=== PATIENT | male | born 1970 | race Caucasian/White ===

== ENCOUNTER 2020-09-18 13:00 | Inpatient (IN) | payer OTHER ==
[~2020-09-18] VITALS: Ht 180.3 cm; Wt 81.7 kg
[~2020-09-18 13:00] MED LIST: ANTISEPTIC SKI237 ML TOP; RIFA300 PO; SULFATRIM 800-120 ML PO
[2020-09-18 13:22] LABS: BASOPHILS ABSOLUTE AUTO 0.06 K/mm3 (0.00-0.23); BASOPHILS PERCENT AUTO 1 % (0-2); EOSINOPHILS ABSOLUTE AUTO 0.21 K/mm3 (0.00-0.68); EOSINOPHILS PERCENT AUTO 2 % (0-6); Hematocrit 45.1 % (37.0-53.0); Hemoglobin 14.3 g/dL (13.5-17.5); IMMATURE GRAN ABSOLUTE AUTO 0.03 K/mm3 (0.00-0.10); IMMATURE GRAN PERCENT AUTO 0 % (0-1); LYMPHOCYTES PERCENT AUTO 28 % (21-46); MONOCYTES ABSOLUTE AUTO 0.88 K/mm3 (0.16-1.47); MONOCYTES PERCENT AUTO 7 % (4-13); Mean Corpuscular HGB 27.8 pg (26.0-34.0); Mean Corpuscular HGB Conc 31.7 g/dL (31.5-36.5); Mean Corpuscular Volume 88 fL (80-100); Mean Platelet Volume 8.5 fL (9.1-12.4); NEUTROPHILS ABSOLUTE AUTO 7.93 K/mm3 (1.96-9.15); NEUTROPHILS PERCENT AUTO 62 % (41-73); Platelet Count 453 K/mm3 (150-400); RDW Coefficient Variation 12.7 % (11.7-14.2); RDW Standard Deviation 40.7 fL (35.1-46.3); Red Blood Cell Count 5.15 M/mm3 (4.30-5.90); White Blood Cell Count 12.71 K/mm3 (4.00-11.30)
[2020-09-18 14:09] LABS: Alanine Aminotransfer (ALT/SGP 71 U/L (12-78); Albumin, Blood 3.2 g/dL (3.4-5.0); Albumin/Globulin Ratio 0.8 (0.8-1.8); Alk Phos 72 U/L (50-136); Aspartate Aminotrans (AST/SGOT 34 U/L (12-37); Bilirubin, Total 1.1 mg/dL (0.1-1.0); Blood Urea Nitrogen 17 mg/dL (8-24); Bun/Creatinine Ratio 14.8 (12.0-20.0); CO2, Blood 32 mmol/L (21-32); Calcium, Blood 8.9 mg/dL (8.5-10.1); Creatinine, Blood 1.15 mg/dL (0.60-1.20); Globulin, Blood 3.9 g/dL (2.2-4.0); Glomerular Filtration Rate >60 (60-); Glucose, Blood 145 mg/dL (70-99); Total Protein, Blood 7.1 g/dL (6.4-8.2); Troponin I <0.015 ng/mL (0.000-0.040)
[2020-09-18 14:17] LABS: Anion Gap 3 mmol/L (6-16); Chloride, Blood 107 mmol/L (98-108); Potassium, Blood 4.3 mmol/L (3.5-5.5); Sodium, Blood 142 mmol/L (136-145)
[2020-09-18 15:03] LABS: International Normalized Ratio 0.97; Prothrombin Time Results 10.5 Sec (9.7-11.5)
[2020-09-18 15:18] LABS: SARS-Cov-2 (COVID-19) PCR, MMC NEGATIVE (NEGATIVE)
[2020-09-18 16:42] LABS: Hematocrit 32.3 % (37.0-53.0); Hemoglobin 10.3 g/dL (13.5-17.5)
[2020-09-18 19:14] LABS: Hemoglobin 12.3 g/dL (13.5-17.5); Mean Corpuscular HGB 28.5 pg (26.0-34.0); Mean Corpuscular HGB Conc 32.4 g/dL (31.5-36.5); Mean Corpuscular Volume 88 fL (80-100); Mean Platelet Volume 8.7 fL (9.1-12.4); Platelet Count 343 K/mm3 (150-400); Red Blood Cell Count 4.32 M/mm3 (4.30-5.90); White Blood Cell Count 22.06 K/mm3 (4.00-11.30)
[2020-09-19 04:36] LABS: Hematocrit 33.5 % (37.0-53.0); Hemoglobin 10.8 g/dL (13.5-17.5); Mean Corpuscular HGB 28.2 pg (26.0-34.0); Mean Corpuscular HGB Conc 32.2 g/dL (31.5-36.5); Mean Corpuscular Volume 88 fL (80-100); Mean Platelet Volume 8.7 fL (9.1-12.4); Platelet Count 321 K/mm3 (150-400); RDW Coefficient Variation 13.2 % (11.7-14.2); Red Blood Cell Count 3.83 M/mm3 (4.30-5.90); White Blood Cell Count 14.99 K/mm3 (4.00-11.30)
--- NOTE | 2020-09-19 05:01 | NUR ---
SHIFT SUMMARY PATIENT POST OP EX LAP TURNED OPEN SMALL BOWEL RESECTION FOR HEMOPERITONEUM. RESTED IN BED THROUGHOUT SHIFT. MEDICATED FOR PAIN PER EMAR. TOLERATING ICE CHIPS AND SIPS OF CLEARS. MIDLINE TIFFANIE INTACT AND WNL. LUIS PATENT AND DRAINING. POST OP VSS. NSR 80S ON TELE. ROUTINE FLUIDS RUNNING.
[2020-09-19 16:21] LABS: Hematocrit 30.9 % (37.0-53.0)
--- NOTE | 2020-09-19 18:44 | NUR ---
SHIFT SUMMARY PT HAS BEEN DROWSY & SLEEPING T/O DAY. TOLERATING CLEAR LQS WELL. REFUSES TO GET OUT OF BED. SAYS HE DOESN'T FEEL READY BUT MAKES STATEMENTS THAT HE WILL BE WILLING TO BE ACTIVE TOMORROW.
[2020-09-20 04:38] LABS: BASOPHILS ABSOLUTE AUTO 0.03 K/mm3 (0.00-0.23); BASOPHILS PERCENT AUTO 0 % (0-2); EOSINOPHILS PERCENT AUTO 1 % (0-6); Hematocrit 30.9 % (37.0-53.0); IMMATURE GRAN ABSOLUTE AUTO 0.03 K/mm3 (0.00-0.10); IMMATURE GRAN PERCENT AUTO 0 % (0-1); LYMPHOCYTES ABSOLUTE AUTO 2.75 K/mm3 (0.84-5.20); LYMPHOCYTES PERCENT AUTO 23 % (21-46); MONOCYTES ABSOLUTE AUTO 1.16 K/mm3 (0.16-1.47); MONOCYTES PERCENT AUTO 10 % (4-13); Mean Corpuscular HGB 28.5 pg (26.0-34.0); Mean Corpuscular HGB Conc 32.4 g/dL (31.5-36.5); Mean Corpuscular Volume 88 fL (80-100); NEUTROPHILS ABSOLUTE AUTO 7.76 K/mm3 (1.96-9.15); NEUTROPHILS PERCENT AUTO 66 % (41-73); Platelet Count 310 K/mm3 (150-400); RDW Standard Deviation 41.9 fL (35.1-46.3); Red Blood Cell Count 3.51 M/mm3 (4.30-5.90); White Blood Cell Count 11.83 K/mm3 (4.00-11.30)
[2020-09-20 04:55] LABS: Anion Gap 2 mmol/L (6-16); Blood Urea Nitrogen 14 mg/dL (8-24); Bun/Creatinine Ratio 20.1 (12.0-20.0); CO2, Blood 31 mmol/L (21-32); Calcium, Blood 7.8 mg/dL (8.5-10.1); Chloride, Blood 105 mmol/L (98-108); Glomerular Filtration Rate >60 (60-); Glucose, Blood 101 mg/dL (70-99); Potassium, Blood 3.9 mmol/L (3.5-5.5); Sodium, Blood 138 mmol/L (136-145)
--- NOTE | 2020-09-20 05:50 | NUR ---
POD 2 S/P EX LAP+RESECTION. PT VSS, SEAL AND SX INTACT TO TIFFANIE DRESSING, NO NEW DRNG NOTED. PT GERI CL PO, ABD SOFT, BT HYPO, PT REP ABD CRAMPING THIS AM, REP +FLATUS. PT VOIDING ARIADNE URINE. PLAN TO MOBILIZE TODAY.
[2020-09-20] MEDS ORDERED: OXYC5 PO (14:13)
[2020-09-20] MEDS ORDERED: Acetaminophen650 M1 PO (14:14)
--- NOTE | 2020-09-20 14:25 | NUR ---
DISCHARGE PT IS A&O X4. PT IS TOLERATING ORAL INTAKE, PASSING GAS, AND BOWEL TONES ARE PRESENT. PT MEDICATED PER EMAR FOR PAIN PRIOR TO DISCHARGE. PT FRIEND AT BEDSIDE DURING DISCHARGE DIRECTION. PT PROVIDED W/ BOTH WRITTEN AND VERBAL DISCHARGE DIRECTION. OXY HARD SCRIPT PROVIDED WITH DISCHARGE INFO. PT VERBALIZED UNDERSTANDING. PT DENIED NEED FOR WC ESCORT WHEN OFFERED. PT LEFT FACILITY BY FOOT.
--- NOTE | 2020-09-21 08:49 | NUR ---
09/21/20 0849 Gita Cherry VERIFICATIONS: EDIT CHART.
== END 2020-09-20 14:25 | disposition home or self-care (01) | DRG 329 ==
LOC: ER 13:00 → SURS 13:01 → ER 13:01 → SURS 14:45
PROVIDERS: Emergency Medicine; ADMIT Surgery
PROC: 0DJD4ZZ Inspection of Lower Intestinal Tract, Percutaneous Endoscopic Approach (ICD-10-PCS; 2020-09-18)
PROC: 0DB80ZZ Excision of Small Intestine, Open Approach (ICD-10-PCS; principal; 2020-09-18 14:30)
PROC: 30233N1 Transfusion of Nonautologous Red Blood Cells into Peripheral Vein, Percutaneous Approach (ICD-10-PCS; 2020-09-18 14:30)
DX: K66.1 Hemoperitoneum (principal); R57.8 Other shock; F15.90 Other stimulant use, unspecified, uncomplicated; Z98.890 Other specified postprocedural states; K40.90 Unilateral inguinal hernia, without obstruction or gangrene, not specified as recurrent
CPT/HCPCS: 36415; 36430; 74178; 80048; 80053; 83690; 84484; 85014; 85018; 85025; 85027; 85610; 86850; 86900; 86901; 86923; 88307; 93005; 93010; 94762; 96361; 96374; 99285-25; A9270; J0330; J0690; J1100; J1170; J1885; J2370; J2405; J2704; J3010; J7030; J7120; P9016; Q9967; U0004